=== PATIENT | male | born 1980 | race Caucasian/White ===

== ENCOUNTER → 2017-05-01 | Outpatient (CLI) | payer OTHER ==
[~2017-05-01] MED LIST: ANAPROX DS550 MG PO; BACTRIM DS 8001 TA1 PO; CLINDAMYCIN HC300 MG PO; CYCLOBENZAPRINE10 MG PO; MEDROL DOSEPAK4 MG PO; MOTRIN800 MG PO; Motrin,Rufen800 MG PO; Peridex 473 ML473 ML PO; VISTARIL50 MG PO; ZYRTEC10 MG PO
== END | disposition home or self-care (01) ==
LOC: RAD 12:06
DX: M25.362 Other instability, left knee (principal)

== ENCOUNTER → 2017-05-23 | Outpatient (CLI) | payer OTHER | END | disposition home or self-care (01) | LOC: MRI 10:33 | DX: M25.462 Effusion, left knee (principal); M25.862 Other specified joint disorders, left knee ==

== ENCOUNTER 2019-03-13 14:42 | Emergency (ER) | payer OTHER ==
[~2019-03-13] VITALS: Ht 177.8 cm; Wt 88.5 kg
[2019-03-13] MEDS ORDERED: CEPHALEXIN500 M1 PO (16:08)
== END 2019-03-13 16:28 | disposition home or self-care (01) ==
LOC: ED 14:42
DX: S61.211A Laceration without foreign body of left index finger without damage to nail, initial encounter (principal); Z79.899 Other long term (current) drug therapy; W45.8XXA Other foreign body or object entering through skin, initial encounter; Y93.89 Activity, other specified; Y92.89 Other specified places as the place of occurrence of the external cause; Y99.8 Other external cause status